=== PATIENT | female | born 1990 | race Caucasian/White ===

== ENCOUNTER 2019-01-26 01:39 | Emergency (ER) | payer OTHER ==
[~2019-01-26] VITALS: Ht 154.9 cm; Wt 79.4 kg
--- NOTE | 2019-01-26 01:39 | NUR ---
PT [facility]. TAKEN TO BED 7
--- NOTE | 2019-01-26 01:40 | NUR ---
28/F BIBA FROM HOME, C/O SUDDEN ONSET INTERMITTENT SHARP EPIGASTRIC, RADIATING WITH PRESSURE-LIKE PAIN TO FLANK AND BACK, 40 MINS AGO WHILE LAYING DOWN. REPORTS 1 EPISODE OF VOMITING, REPORTS IMPROVEMENT IN NAUSEA AFTER 4MG ZOFRAN [facility]. PT DENIES FEVER, CONSTIPATION, DIARRHEA, OR DYSURIA. PT AWAKE AND ALERT, SKIN NORMAL COLOR WARM AND DRY, RR EVEN AND UNLABORED. BS ACTIVE X4, ABD SOFT ROUND TENDER TO UPPER QUADRANTS, DENIES LOWER QUADRANT PAIN. HX GASTRIC SLEEVE SURGERY (08/18/18)
[2019-01-26 01:47] VITALS: BP 102/49
[2019-01-26] MEDS ORDERED: DICYCLOMINE HCL LIQUID 20 MG, ALUMINUM HYD/MAG/SIMETHICONE 30 ML, LIDOCAINE VISCOUS 2% ... PO ONE ×3 (01:50)
[2019-01-26] MEDS ORDERED: NACL 0.9% 1,000 ML IV SCH (02:00)
[2019-01-26 02:12] LABS: BASOPHILS % (AUTO) 0.3 % (0.0-2.0); EOSINOPHILS # (AUTO) 0.3 K/uL (0-0.4); EOSINOPHILS % (AUTO) 2.9 % (0.0-4.0); HEMOGLOBIN 11.1 g/dL (12.0-16.0); LYMPHOCYTES % (AUTO) 20.6 % (20.5-51.1); MEAN CORPUSCULAR HEMOGLOBIN 28 pg (27-31); MEAN CORPUSCULAR HGB CONC 33 g/dL (33-37); MEAN CORPUSCULAR VOLUME 85.8 fL (80-94); MONOCYTES # (AUTO) 0.6 K/uL (0.8-1.0); MONOCYTES % (AUTO) 6.1 % (1.7-9.3); NEUTROPHILS # (AUTO) 6.9 K/uL (1.8-7.7); NEUTROPHILS % (AUTO) 70.1 % (42.2-75.2); PLATELET COUNT (AUTO) 245 K/uL (140-450); RED BLOOD CELL COUNT(AUTO) 3.96 MIL/uL (4.20-5.40); WHITE BLOOD COUNT (AUTO) 9.8 K/uL (4.8-10.8)
[2019-01-26] MEDS ORDERED: ONDANSETRON 4 MG/2 ML VIAL IVP ONE (02:15)
[2019-01-26] MEDS ORDERED: diphenhydrAMINE 50 MG/ML VIAL IVP ONE (02:20)
[2019-01-26 02:21] LABS: ANION GAP 11.3 (8-16); CARBON DIOXIDE 26.9 mmol/L (21-32); CREATININE 0.7 mg/dL (0.6-1.3); POTASSIUM 3.2 mmol/L (3.5-5.1)
[2019-01-26 02:29] LABS: ALBUMIN 3.3 g/dL (3.4-5.0); TOTAL BILIRUBIN 0.5 mg/dL (0.0-1.0)
--- NOTE | 2019-01-26 02:30 | NUR ---
PT C/O NAUSEA, DR OKEEFE MADE AWARE. ADMINISTERED ZOFRAN 4MG IVP WITH EDUCATION ORDERED. PT C/O ITCHING, SMALL HIVES NOTED ON ABD AND LLE. DR OKEEFE MADE AWARE. ADMINISTERED BENADRYL 25MG IVP WITH EDUCATION ORDERED. PT VERBALIZED UNDERSTANDING, TOLERATED MEDS WELL.
[2019-01-26 02:51] VITALS: BP 96/53
[2019-01-26] MEDS ORDERED: KETOROLAC 30 MG/ML VIAL IVP ONE (03:00)
--- NOTE | 2019-01-26 03:09 | NUR ---
Patient discharged with v/s stable. Written and verbal after care instructions given and explained. Patient alert, oriented and verbalized understanding of instructions. Ambulatory with steady gait. All questions addressed prior to discharge. ID band removed. Patient advised to follow up with PMD. Rx of ZOFRAN, PRILOSEC, MOTRIN given. Patient educated on indication of medication including possible reaction and side effects. Opportunity to ask questions provided and answered.
== END 2019-01-26 03:09 | disposition home or self-care (01) ==
LOC: MED 01:39
DX: R10.13 Epigastric pain (principal); R11.2 Nausea with vomiting, unspecified; Z88.0 Allergy status to penicillin; Z98.84 Bariatric surgery status
CPT/HCPCS: 36415; 80053; 83690; 85025; 96361; 96374; 96375; 99283; J1200; J1885; J2405; J7030

== ENCOUNTER 2021-01-10 13:30 | Emergency (ER) | payer OTHER ==
[~2021-01-10] VITALS: Ht 152.4 cm; Wt 72.6 kg
[2021-01-10 13:36] VITALS: BP 99/52
--- NOTE | 2021-01-10 13:42 | NUR ---
LOBBY. Addendum: 01/10/21 at 1343 by [email or web address] HANDED ON URINE CUP.
[2021-01-10 15:39] LABS: BASOPHILS # (AUTO) 0.1 K/uL (0.00-0.22); BASOPHILS % (AUTO) 0.9 % (0.0-2.0); EOSINOPHILS # (AUTO) 0.2 K/uL (0-0.4); EOSINOPHILS % (AUTO) 2.3 % (0.0-4.0); HEMOGLOBIN 12.3 g/dL (12.0-16.0); LYMPHOCYTES # (AUTO) 2.2 K/uL (2.5-16.5); LYMPHOCYTES % (AUTO) 26.9 % (20.5-51.1); MEAN CORPUSCULAR HEMOGLOBIN 29 pg (27-31); MEAN CORPUSCULAR HGB CONC 33 g/dL (33-37); MEAN CORPUSCULAR VOLUME 87.8 fL (80-94); MONOCYTES # (AUTO) 0.6 K/uL (0.8-1.0); NEUTROPHILS # (AUTO) 5.1 K/uL (1.8-7.7); NEUTROPHILS % (AUTO) 62.9 % (42.2-75.2); PLATELET COUNT (AUTO) 315 K/uL (140-450); RED BLOOD CELL COUNT(AUTO) 4.21 MIL/uL (4.20-5.40); RED CELL DISTRIBUTION WIDTH 16.3 % (11.6-13.7); WHITE BLOOD COUNT (AUTO) 8.1 K/uL (4.8-10.8)
[2021-01-10 16:00] LABS: APPEARANCE,URINE CLEAR (CLEAR); BILIRUBIN,URINE NEGATIVE (NEGATIVE); BLOOD, URINE 1+ (NEGATIVE); COLOR,URINE YELLOW (YELLOW); LEUKOCYTE ESTERASE ,URINE NEGATIVE (NEGATIVE); NITRITE, URINE NEGATIVE (NEGATIVE); UGLUCOSE NEGATIVE (NEGATIVE)
[2021-01-10] MEDS ORDERED: ACETAMINOPHEN EXTRA STRENGTH 500 MG TAB PO SCH (16:15)
[2021-01-10 16:50] LABS: RBC,URINE 0-5 /HPF (0-5); WBC,URINE 0-5 /HPF (0-5)
--- NOTE | 2021-01-10 17:20 | NUR ---
Patient discharged with v/s stable. Written and verbal after care instructions given and explained. Patient verbalized understanding. Ambulatory with steady gait. All questions addressed prior to discharge. Advised to follow up with PMD.
== END 2021-01-10 17:20 | disposition home or self-care (01) ==
LOC: MED 13:30
DX: O03.9 Complete or unspecified spontaneous abortion without complication (principal); Z3A.01 Less than 8 weeks gestation of pregnancy
CPT/HCPCS: 36415; 76817; 81001; 81025; 84702; 85025; 86900; 86901; 99284

== ENCOUNTER 2021-08-12 13:50 | Emergency (ER) | payer OTHER ==
[~2021-08-12] VITALS: Ht 152.4 cm; Wt 68.0 kg
[2021-08-12 13:55] VITALS: BP 107/52
--- NOTE | 2021-08-12 13:58 | NUR ---
PT AMBULATED TO ER BED 9
--- NOTE | 2021-08-12 16:00 | NUR ---
pt c/o vaginal bleeding with cramping since this am, states took home test that was positive
[2021-08-12 16:34] VITALS: BP 111/65
== END 2021-08-12 16:33 | disposition home or self-care (01) ==
LOC: MED 13:50
DX: N93.9 Abnormal uterine and vaginal bleeding, unspecified (principal); Z88.0 Allergy status to penicillin
CPT/HCPCS: 36415; 76830; 81002; 81025; 84702; 99284; Q0092

== ENCOUNTER 2022-04-02 10:47 | Observation (INO) | payer OTHER ==
[~2022-04-02] VITALS: Ht 152.4 cm; Wt 68.0 kg
[2022-04-02 11:00] VITALS: BP 102/53
[2022-04-02] MEDS ORDERED: TERBUTALINE 1 MG/ML VIAL SUBQ ONE (11:23)
[2022-04-02] MEDS ORDERED: TERBUTALINE 1 MG/ML VIAL SUBQ SCH (11:25)
== END 2022-04-02 14:28 | disposition home or self-care (01) ==
LOC: MLD 10:47
PROVIDERS: ADMIT Obstetrics & Gynecology; ATTEND Obstetrics & Gynecology
DX: O26.892 Other specified pregnancy related conditions, second trimester (principal); Z20.822 Contact with and (suspected) exposure to COVID-19; L29.9 Pruritus, unspecified; Z3A.24 24 weeks gestation of pregnancy
CPT/HCPCS: 76805; 87426; G0378; G0379; J3105; Q0092

== ENCOUNTER 2022-05-08 19:01 | Emergency (ER) | payer OTHER ==
[~2022-05-08] VITALS: Ht 152.4 cm; Wt 72.6 kg
--- NOTE | 2022-05-08 19:01 | NUR ---
[facility] TO ER BED 8
[2022-05-08 19:03] VITALS: BP 106/55
[2022-05-08] MEDS ORDERED: ACETAMINOPHEN EXTRA STRENGTH 500 MG TAB ONE (19:13)
[2022-05-08] MEDS ORDERED: ACETAMINOPHEN EXTRA STRENGTH 500 MG TAB PO ONE (19:15)
--- NOTE | 2022-05-08 19:15 | NUR ---
Pt report given to TIMMY Samuels. Transfer of care at this time.
--- NOTE | 2022-05-08 19:15 | NUR ---
TO ED 08, ATTATCHED TO CONTINOUS MONITORING. PENDING MSE.
[2022-05-08] MEDS ORDERED: ALUMINUM HYD/MAG/SIMETHICONE 30 ML UDC PO ONE (19:45)
--- NOTE | 2022-05-08 20:00 | NUR ---
L&AT BEDSIDE TO MONITOR PT. PT ON MONITOR. FHR 160 BASELINE, MOSERATE VARIABILITY. NOTIFIED MD OF PT CONTRACTIONS 2-3 MIN, PAIN 9/10 INTERMITENT IN ABD. MD TO NOTIFY CONSULT. RECOMMENDED ORDER FOR BETAMETHASONE AND IV FLUIDS.
[2022-05-08] MEDS ORDERED: TERBUTALINE 1 MG/ML VIAL SUBQ ONE (20:05)
[2022-05-08] MEDS ORDERED: BETAMETH ACET/BETAMETH NA PH 30 MG/5 ML VIAL IM ONE (20:10)
--- NOTE | 2022-05-08 20:21 | NUR ---
PT MOTHER LASHONDA LEFT CONTACT INFO:
--- NOTE | 2022-05-08 20:40 | NUR ---
CALLED AND SPOKE TO HORSE RACER FLAKITO, SIEBEL ADMINISTRATOR FOR DR. BACH. ORDERS RECIEVED AND DISCUSSED WITH ED DOCTOR. TO ADD ORDERS. WILL CONTINUE TO MONITOR PT
[2022-05-08] MEDS ORDERED: NACL 0.9% 1,000 ML IV ONE ×2 (20:50→22:40)
--- NOTE | 2022-05-08 20:50 | NUR ---
ORDERED BETHAMETHASONE AND TERBUTALINE FOR PT. RN ADMINISTERED MEDICATIONS. WILL CONTINUE TO MONITOR FHR AND CONTRACTIONS
--- NOTE | 2022-05-08 20:58 | NUR ---
L&D RN at bedside with patient.
--- NOTE | 2022-05-08 21:08 | NUR ---
[facility] AT BED[facility]IDE
[2022-05-08 21:30] LABS: APPEARANCE,URINE CLEAR (CLEAR); BILIRUBIN,URINE NEGATIVE (NEGATIVE); BLOOD, URINE TRACE-I (NEGATIVE); COLOR,URINE YELLOW (YELLOW); LEUKOCYTE ESTERASE ,URINE 1+ (NEGATIVE); NITRITE, URINE NEGATIVE (NEGATIVE); PH,URINE 6.5 (5.0-9.0); UGLUCOSE NEGATIVE (NEGATIVE)
[2022-05-08 21:35] LABS: RBC,URINE 0-5 /HPF (0-5)
--- NOTE | 2022-05-08 21:50 | NUR ---
Patient lying in bed, A/Ox4, chest rise and fall symmetrical, no c/o pain or s/s of distress, vitals stable L&D.
[2022-05-08] MEDS ORDERED: LACTATED RINGERS 1,000 ML IV ONE ×3 (23:00→23:25)
--- NOTE | 2022-05-08 23:00 | NUR ---
NOTIFIED ED AFTER SPEAKING WITH DR. BACH. PT US RESULTS OBTAINED AND WANTS PT TRANSFERED TO HIGHER LEVEL OF CARE FOR LABOR FOR NICU AVAILABILITY
--- NOTE | 2022-05-08 23:00 | NUR ---
Patient lying in bed, A/Ox4, chest rise and fall symmetrical, no c/o pain or s/s of distress,
[2022-05-08] MEDS ORDERED: ONDANSETRON 4 MG/2 ML VIAL IVP ONE ×2 (23:15→23:30)
[2022-05-08] MEDS ORDERED: ONDANSETRON 4 MG/2 ML VIAL ONE ×2 (23:16)
--- NOTE | 2022-05-09 00:38 | NUR ---
Patient lying in bed, A/Ox4, chest rise and fall symmetrical, no c/o pain or s/s of distress,
--- NOTE | 2022-05-09 02:20 | NUR ---
Patient lying in bed, A/Ox4, chest rise and fall symmetrical, no c/o pain or s/s of distress,
--- NOTE | 2022-05-09 03:30 | NUR ---
Patient lying in bed, A/Ox4, chest rise and fall symmetrical, no c/o pain or s/s of distress,
--- NOTE | 2022-05-09 05:20 | NUR ---
Patient lying in bed, A/Ox4, chest rise and fall symmetrical, no c/o pain or s/s of distress,
--- NOTE | 2022-05-09 05:22 | NUR ---
L&D RN with patient, inspecting monitor.
--- NOTE | 2022-05-09 05:58 | NUR ---
Note undone in ED - 05/09/22 at 0602 by [email or web address] Patient to be transferred to [facility]. Is being transferred due to Higher Level of Care. Receiving facility has accepting physician and available space. ER physician has signed transfer form. Patient or responsible republican has agreed to transfer and signed form. Patient belongings inventoried and will be sent with patient. Copy of nursing notes, lab reports, EKG, Physicians Orders and X-rays to be sent with patient. Report called to Faye WARNER at receiving facility. [facility] ambulance service has been called for transfer. ETA is 0630. Addendum: 05/09/22 at 0559 by [email or web address] Amendment undone in ED - 05/09/22 at 0602 by [email or web address] Patient to be transferred to [facility]. Is being transferred due to Higher Level of Care. Receiving facility has accepting physician and available space. ER physician has signed transfer form. Patient or responsible republican has agreed to transfer and signed form. Patient belongings inventoried and will be sent with patient. Copy of nursing notes, lab reports, EKG, Physicians Orders and X-rays to be sent with patient. Report called to Faye WARNER at receiving facility. Faye WARNER verbalized understanding of report, no urther questions. [facility] ambulance service has been called for transfer. ETA is 0630.
--- NOTE | 2022-05-09 05:59 | NUR ---
Patient to be transferred to [facility]. Is being transferred due to Higher Level of Care. Receiving facility has accepting physician and available space. ER physician has signed transfer form. Patient or responsible green party has agreed to transfer and signed form. Patient belongings inventoried and will be sent with patient. Copy of nursing notes, lab reports, EKG, Physicians Orders and X-rays to be sent with patient. Report called, phone number [phone], to Faye WARNER at receiving facility. [facility] ambulance service has been called for transfer. ETA is 0630.
--- NOTE | 2022-05-09 07:11 | NUR ---
Total urine output throught shift is 1200 mL.
--- NOTE | 2022-05-09 07:11 | NUR ---
Patient lying in bed, A/Ox4, chest rise and fall symmetrical, no c/o pain or s/s of distress.
--- NOTE | 2022-05-09 07:38 | NUR ---
Change of shift report given to Melissa DIAZ. Melissa DIAZ verbalized understanding of report, no further questions.
--- NOTE | 2022-05-09 07:41 | NUR ---
REPORT RECEIVED FROM TIERRA WARNER . ASSUMED CARE AT THIS TIME
--- NOTE | 2022-05-09 07:42 | NUR ---
pt at rest w/ eyes closed in supine position. on and phototypesetting equipment monitor. respirations even and unlabored. bed at lowest position, bed rails upx2.
--- NOTE | 2022-05-09 07:51 | NUR ---
[facility] AT BEDSIDE
[2022-05-09 08:05] VITALS: BP 92/59
--- NOTE | 2022-05-09 08:05 | NUR ---
Note undone in EDM - 05/09/22 at 0825 by [email or web address] Patient to be transferred to [facility] room 2146. Is being transferred due to Insurance. Receiving facility has accepting physician and available space. ER physician has signed transfer form. Patient or responsible constitution party has agreed to transfer and signed form. Patient belongings inventoried and sent with patient. Copy of nursing notes, lab reports, EKG, Physicians Orders and X-rays to be sent with patient. Report called to David RN BY PM NURSE at receiving facility. PT TAKEN BY [facility]. [place] TO FACILITY 30MIN
--- NOTE | 2022-05-09 08:05 | NUR ---
Patient to be transferred to [facility]. Is being transferred due to Higher Level of Care. Receiving facility has accepting physician and available space. ER physician has signed transfer form. Patient or responsible democrat has agreed to transfer and signed form. Patient belongings inventoried and sent with patient. Copy of nursing notes, lab reports, Physicians Orders to be sent with patient. Report called to Faye RN-BY PM NURSE at receiving facility. PT TX BY [facility]. ETA TO FACILITY 40MIN
== END 2022-05-09 08:05 | disposition short-term general hospital (02) ==
LOC: MED 19:01
DX: O60.03 Preterm labor without delivery, third trimester (principal); Z20.822 Contact with and (suspected) exposure to COVID-19; J10.1 Influenza due to other identified influenza virus with other respiratory manifestations; Z3A.30 30 weeks gestation of pregnancy; Z88.1 Allergy status to other antibiotic agents
CPT/HCPCS: 36415; 76817; 81001; 82731; 87086; 87426; 87804; 96361; 96372; 96374; 99285; J0702; J2405; J3105; J7030; J7120; Q0092